=== PATIENT | female | born 1960 | race Caucasian/White ===

== ENCOUNTER → 2016-03-15 | Outpatient (CLI) | payer OTHER ==
[~2016-03-15] VITALS: Ht 162.6 cm; Wt 55.7 kg
[~2016-03-15] MED LIST: LIDOCAINE 2% INJ 100 MG/5 ML SDV (FOR ANES.) As Ordered ONE; MIDAZOLAM INJ 2 MG/2 ML VIAL (J2250) As Ordered ONE; NS 1,000 ML IV SCH; PROBCAP4 PO; PROPOFOL 200 MG/20 ML VIAL As Ordered ONE
--- NOTE | 2016-03-15 13:45 | ROOR ---
Patient Name: Shital Ayers Procedure Date: 03/15/2016 1:27 PM Date of : 1960 Age: 55 Room: [facility] Gender: Female Note Status: Finalized Procedure: Upper GI endoscopy Indications: Dysphagia, Heartburn Providers: Dandy BROWN MD Referring MD: Elizabeth Vallejo MD Requesting Provider: Medicines: Monitored Anesthesia Care Complications: No immediate complications. Procedure: Pre-Anesthesia Assessment: - The heart rate, respiratory rate, oxygen saturations, blood pressure, adequacy of pulmonary ventilation, and response to care were monitored throughout the procedure. The Endoscope was introduced through the mouth, and advanced to the second part of duodenum. The upper GI endoscopy was accomplished without difficulty. The patient tolerated the procedure well. Findings: The examined esophagus was normal. No endoscopic abnormality was evident in the esophagus to explain the patient's complaint of dysphagia. It was decided, however, to proceed with dilation of the entire esophagus. The scope was withdrawn. Dilation was performed with a Davis dilator with mild resistance at 54 Fr. The dilation site was examined following endoscope reinsertion and showed no change. The entire examined stomach was normal. The examined duodenum was normal. Impression: - Normal esophagus. - No endoscopic esophageal abnormality to explain patient's dysphagia. Esophagus dilated. Dilated. - Normal stomach. - Normal examined duodenum. - No specimens collected. Recommendation: - Observe patient's clinical course. - (FYI:difficult swallowing is frequently a result of an "irritable"/spastic esophagus due to acid reflux. consider trial on Omeprazole 40 mg daily if difficult swallowing returns---Let me know) Dandy Brown MD Dandy BROWN MD 03/15/2016 1:45:21 PM This report has been signed electronically. Number of Addenda: 0 Note Initiated On: 03/15/2016 1:27 PM Estimated Blood Loss: Estimated blood loss: none.
--- NOTE | 2016-03-15 13:59 | ROOR ---
Patient Name: Shital Ayers Procedure Date: 03/15/2016 1:28 PM Date of : 1960 Age: 55 Room: [facility] Gender: Female Note Status: Finalized Procedure: Colonoscopy Indications: High risk colon cancer surveillance: Personal history of colonic polyps, Family history of colon cancer in a first-degree relative, (</= 60 yo) Providers: Dandy LUCIO MD Referring MD: Elizabeth Vallejo MD Requesting Provider: Medicines: Monitored Anesthesia Care Complications: No immediate complications. Procedure: Pre-Anesthesia Assessment: - The heart rate, respiratory rate, oxygen saturations, blood pressure, adequacy of pulmonary ventilation, and response to care were monitored throughout the procedure. The Colonoscope was introduced through the anus and advanced to the cecum, identified by appendiceal orifice and ileocecal valve. The colonoscopy was somewhat difficult due to inadequate bowel prep. Successful completion of the procedure was aided by lavage. The patient tolerated the procedure well. The quality of the bowel preparation was inadequate. Findings: The perianal and digital rectal examinations were normal. (EXAM: Complete, PREP: Suboptimal) Multiple diverticula were found in the sigmoid colon. The exam was otherwise without abnormality. Impression: - (EXAM: Complete, PREP: Suboptimal/inadequate) - Diverticulosis in the sigmoid colon. - The examination was otherwise normal. - No specimens collected. Recommendation: - Repeat colonoscopy in 1-2 years for surveillance. - Repeat colonoscopy in 1-2 years because the bowel preparation was inadequate/suboptimal. Dandy Lucio MD Dandy LUCIO MD 03/15/2016 1:58:42 PM This report has been signed electronically. Number of Addenda: 0 Note Initiated On: 03/15/2016 1:28 PM Estimated Blood Loss: Estimated blood loss: none.
[2016-03-15 14:15] VITALS: BP 123/88
== END ==
LOC: M OPP 12:34
PROVIDERS: ATTEND Internal Medicine Gastroenterology
DX: Z12.11 Encounter for screening for malignant neoplasm of colon (principal); Z86.010 Personal history of colon polyps; Z80.0 Family history of malignant neoplasm of digestive organs; K57.30 Diverticulosis of large intestine without perforation or abscess without bleeding; R12 Heartburn; R13.10 Dysphagia, unspecified; Z88.2 Allergy status to sulfonamides
CPT/HCPCS: 43235; 43450; 45378; J2250

== ENCOUNTER → 2018-01-31 | Outpatient (CLI) | payer OTHER | LOC: M ONCR 09:48 | DX: C50.912 Malignant neoplasm of unspecified site of left female breast (principal) | CPT/HCPCS: G0463 ==

== ENCOUNTER → 2018-02-04 | Outpatient (CLI) | payer OTHER | LOC: M RAD 12:39 | DX: R60.0 Localized edema (principal); Z98.890 Other specified postprocedural states | CPT/HCPCS: 76642 ==

== ENCOUNTER → 2018-05-09 | Outpatient (REF) | payer OTHER ==
[~2018-05-09] MED LIST changes: +FEMA2.5T4 PO; -LIDOCAINE 2% INJ 100 MG/5 ML SDV (FOR ANES.) As Ordered ONE; -MIDAZOLAM INJ 2 MG/2 ML VIAL (J2250) As Ordered ONE; -NS 1,000 ML IV SCH; -PROPOFOL 200 MG/20 ML VIAL As Ordered ONE
== END ==
LOC: M LAB REF 14:26
PROVIDERS: ATTEND Family Medicine
DX: Z12.4 Encounter for screening for malignant neoplasm of cervix (principal); N88.8 Other specified noninflammatory disorders of cervix uteri
CPT/HCPCS: 87624; G0123

== ENCOUNTER 2018-09-16 07:38 | Day surgery (SDC) | payer OTHER ==
[~2018-09-16] VITALS: Ht 162.6 cm; Wt 54.0 kg
[2018-09-16] MEDS ORDERED: NS 1,000 ML IV ONE (08:15)
--- NOTE | 2018-09-16 08:33 | ROOR ---
Patient Name: Shital Ayers Procedure Date: 09/16/2018 8:05 AM Date of : 1960 Age: 57 Room: [facility] Gender: Female Note Status: Finalized Procedure: Colonoscopy Indications: High risk colon cancer surveillance: Personal history of colonic polyps, Last colonoscopy: February 2016, Family history of colon cancer in a first-degree relative Providers: Dandy LUCIO MD Referring MD: Elizabeth Vallejo MD Requesting Provider: Medicines: Monitored Anesthesia Care Complications: No immediate complications. Procedure: Pre-Anesthesia Assessment: - The heart rate, respiratory rate, oxygen saturations, blood pressure, adequacy of pulmonary ventilation, and response to care were monitored throughout the procedure. The Colonoscope was introduced through the anus and advanced to the terminal ileum, with identification of the appendiceal orifice and IC valve. The colonoscopy was performed without difficulty. The patient tolerated the procedure well. The quality of the bowel preparation was good. Findings: The perianal and digital rectal examinations were normal. Two sessile polyps were found in the hepatic flexure and ascending colon. The polyps were 4 to 7 mm in size. These polyps were removed with a cold snare. Resection and retrieval were complete. A 5 mm polyp was found in the sigmoid colon. The polyp was sessile. The polyp was removed with a cold snare. Resection and retrieval were complete. Multiple medium-mouthed diverticula were found in the sigmoid colon. There was evidence of diverticular spasm. Internal hemorrhoids were found during retroflexion. The hemorrhoids were medium-sized. Impression: - Two 4 to 7 mm polyps at the hepatic flexure and in the ascending colon, removed with a cold snare. Resected and retrieved. - One 5 mm polyp in the sigmoid colon, removed with a cold snare. Resected and retrieved. - Moderate diverticulosis in the sigmoid colon. There was evidence of diverticular spasm. - Internal hemorrhoids. Recommendation: - Repeat colonoscopy in 5 years for surveillance. Dandy Lucio MD Dandy LUCIO MD 09/16/2018 8:33:22 AM Electronically signed by Dandy LUCIO MD Number of Addenda: 0 Note Initiated On: 09/16/2018 8:05 AM Estimated Blood Loss: Estimated blood loss: none.
[2018-09-16 08:55] VITALS: BP 127/70
[2018-09-16] MEDS ORDERED: PROPOFOL 200 MG/20 ML VIAL As Ordered ONE (10:09)
[2018-09-16] MEDS ORDERED: LIDOCAINE 2% INJ 100 MG/5 ML SDV (FOR ANES.) As Ordered ONE (10:09)
== END 2018-09-16 09:05 | disposition home or self-care (01) ==
LOC: M OPP 07:38
PROVIDERS: ATTEND Internal Medicine Gastroenterology
DX: Z12.11 Encounter for screening for malignant neoplasm of colon (principal); Z86.010 Personal history of colon polyps; Z80.0 Family history of malignant neoplasm of digestive organs; K63.5 Polyp of colon; D12.5 Benign neoplasm of sigmoid colon; K57.30 Diverticulosis of large intestine without perforation or abscess without bleeding; Z91.041 Radiographic dye allergy status; Z88.2 Allergy status to sulfonamides; Z88.5 Allergy status to narcotic agent